=== PATIENT | female | born 2000 | race Caucasian/White ===

== ENCOUNTER 2019-02-09 23:05 | Emergency (ER) | payer SELFPAY ==
[~2019-02-09] VITALS: Ht 154.9 cm; Wt 95.2 kg
--- OUTSIDE RECORDS SUMMARY | ~2019-02-09 | XMS | Clinical Summary ---
Demographics + + + | Address | [address] | | | [place] [address] | + + + | Home Phone | | + + + | Preferred Language | Unknown | + + + | Marital Status | Single | + + + | Anabaptism Affiliation | Unknown | + + + | Race | Unknown | + + + | Ethnic Group | Unknown | + + + Author + + + | Author | [facility] | | | and [place] | + + + | Organization | [facility] | | | and [place] | + + + | Address | Unknown | + + + | Phone | Unavailable | + + + Support + + + + + | Name | Relationship | Address | Phone | + + + + + | Anel Jennings | ECON | [address] | | | | | [place] [address] | | + + + + + Care Team Providers + +------+ + | Care Scenario Writer Name | Role | Phone | + +------+ + | No Physician | PP | Unavailable | + +------+ + Allergies + + + + + + | Active Allergy | Reactions | Severity | Noted | Comments | | | | | Date | | + + + + + + | Hydrocodone | Hives | Medium | 12/05/19 | | | | | | 16 | | + + + + + + Medications + + + +---------+------+------+-------+ | Medication | Sig | Dispensed | Refills | Star | End | Statu | | | | | | t | Date | s | | | | | | Date | | | + + + +---------+------+------+-------+ | ibuprofen (ADVIL, | Take 200 mg by mouth | | 0 | | | Activ | | MOTRIN) 200 mg | every 6 hours as | | | | | e | | tablet | needed for Pain. | | | | | | + + + +---------+------+------+-------+ | acetaminophen | Take 500 mg by mouth | | 0 | | | Activ | | (TYLENOL) 500 mg | every 6 hours as | | | | | e | | tablet | needed for Pain. | | | | | | + + + +---------+------+------+-------+ | ondansetron | Take 1 tablet by | 15 | 0 | 02/2 | | Activ | | (ZOFRAN ODT) 4 mg | mouth every 6 hours | tablet | | 7/20 | | e | | disintegrating | as needed for | | | 16 | | | | tablet | Nausea. | | | | | | + + + +---------+------+------+-------+ Active Problems Not on file Social History + + + +--------+------+ | Tobacco Use | Types | Packs/Day | Years | Date | | | | | Used | | + + + +--------+------+ | Heavy Tobacco Smoker | Cigarettes | 0.5 | | | + + + +--------+------+ + + + | Sex Assigned at | Date Recorded | | | | + + + | Not on file | | + + + + + + + | Job Start Date | Occupation | Industry | + + + + | Not on file | Not on file | Not on file | + + + + + + + + | Travel History | Travel Start | Travel End | + + + + + + | No recent travel history available. | + + Last Filed Vital Signs + + + + | Vital Sign | Reading | Time Taken | + + + + | Blood Pressure | 124/74 | 12/05/20151709 PST | + + + + | Pulse | 99 | 12/05/20151709 PST | + + + + | Temperature | 37.9 C (100.3 F) | 12/05/20151709 PST | + + + + | Respiratory Rate | 16 | 12/05/20151709 PST | + + + + | Oxygen Saturation | 98% | 12/05/20151709 PST | + + + + | Inhaled Oxygen | - | - | | Concentration | | | + + + + | Weight | 81.6 kg (180 lb) | 12/05/20151709 PST | + + + + | Height | 154.9 cm (5' 1") | 12/05/20151709 PST | + + + + | Body Mass Index | 34.01 | 12/05/20151709 PST | + + + + Plan of Treatment + + + + + | Health Maintenance | Due Date | Last Done | Comments | + + + + + | Well Child Check | | | | | | 2 | | | + + + + + | Vaccine: HPV (1 - | | | | | Female 3-dose | 4 | | | | series) | | | | + + + + + | Vaccine: | | | | | Dtap/Tdap/Td (1 - | 8 | | | | Tdap) | | | | + + + + + | Vaccine: Influenza | | | | | (Season Ended) | 9 | | | + + + + + Results Not on filefrom Last 3 Months Insurance + +--------+ +--------+ +---------+--------+ | Payer | Benefi | Subscriber | Effect | Phone | Address | Type | | | t Plan | ID | agueda | | | | | | / | | Dates | | | | | | Group | | | | | | + +--------+ +--------+ +---------+--------+ | [place] | MEDICA | [id number] | 10/09/19 | [phone] | | [place] | | [place] | | 16-Pre | 2 | | id | | | PLUS | | sent | | | | + +--------+ +--------+ +---------+--------+ + +--------+ +--------+ + + | Guarantor Name | Accoun | Relation to | Date | Phone | Billing Address | | | t Type | Patient | of | | | | | | | | | | + +--------+ +--------+ + + | Linnette Fox | Person | Self | [birth year] | [address] | | | al/Sudhir | | 1999 | [phone] | [place] | | | flex | | | [address] (Home) | [address] | + +--------+ +--------+ + + Advance Directives Patient has advance care planning documents on file. For more information, please contact:[facility] [place] [address]
--- OUTSIDE RECORDS SUMMARY | ~2019-02-09 | XMS | Clinical Summary ---
Demographics + + + | Address | [address] | | | [place] [address] | + + + | Home Phone | | + + + | Preferred Language | Unknown | + + + | Marital Status | Single | + + + | Methodist Affiliation | Unknown | + + + | Race | Unknown | + + + | Ethnic Group | Unknown | + + + Author + + + | Author | [facility] | | | and [place] | + + + | Organization | [facility] | | | and [...] | | | | | [place] [address] | | + + + + + Care Team Providers + +------+ + | Care Ferryboat Pilot Name | Role | Phone | + [...] +---------+--------+ | [place] | MEDICA | [id number] | 10/09/19 | [phone] | | Medica | | | ID [...] flex | | | 7 (Home) | [address] | + +--------+ +--------+ + + Advance Directives Patient has advance care planning documents on file. For more information, please contact:[place] [address]
[~2019-02-09 23:05] MED LIST: MACROBID 100 M100 MG PO; SEPTRA DS TABL1 EACH PO; TRAMADOL HCL50 MG PO
== END 2019-02-10 00:40 | disposition home or self-care (01) ==
LOC: ED 23:05
DX: F10.129 Alcohol abuse with intoxication, unspecified (principal); F17.200 Nicotine dependence, unspecified, uncomplicated; Z88.5 Allergy status to narcotic agent; Z79.899 Other long term (current) drug therapy
CPT/HCPCS: 84703; 99284; G0480

== ENCOUNTER 2019-03-25 11:36 | Emergency (ER) | payer OTHER ==
[~2019-03-25] VITALS: Ht 157.5 cm; Wt 95.2 kg
== END 2019-03-25 13:52 | disposition home or self-care (01) ==
LOC: ED 11:36
DX: J06.9 Acute upper respiratory infection, unspecified (principal); F17.200 Nicotine dependence, unspecified, uncomplicated; Z88.5 Allergy status to narcotic agent
CPT/HCPCS: 71045; 99284-25

== ENCOUNTER 2022-03-02 19:25 | Emergency (ER) | payer BC ==
[~2022-03-02] VITALS: Ht 157.5 cm; Wt 92.0 kg
--- OUTSIDE RECORDS SUMMARY | 2022-03-02 19:32 | XMS ---
PreManage Notification: ROSLYN COLEY Security History Faculty Member Events No recent Security Events currently on file CRITERIA MET - [facility] - 2 Visits in 30 Days CARE PROVIDERS There are no care providers on record at this time. Willi has no Care Guidelines for this patient. [place] V[facility] (12 MO.) [facility] NOTE: Visits indicate total known visits. ED/C VISIT TRACKING (12 MO.) [facility]2022 19[facility] [place] [facility] COMPLAINT: - VAGINAL BLEEDING [facility]02[facility]2022 16[facility] DIAGNOSES: - poss ectopic preg INPATIENT VISIT TRACKING (12 MO.) No inpatient visits to display in this time frame [email or web address]
[2022-03-03] MEDS ORDERED: CEPHALEXIN500 MG PO (00:14)
== END 2022-03-03 00:36 | disposition home or self-care (01) ==
LOC: ED 19:25
DX: O20.9 Hemorrhage in early pregnancy, unspecified (principal); Z3A.01 Less than 8 weeks gestation of pregnancy; O99.331 Smoking (tobacco) complicating pregnancy, first trimester; F17.200 Nicotine dependence, unspecified, uncomplicated; Z88.5 Allergy status to narcotic agent
CPT/HCPCS: 36415; 76801; 76817; 80048; 81001; 84702; 84703; 85025; 86900; 86901; 99284-25; A9270

== ENCOUNTER 2022-09-24 18:45 | Emergency (ER) | payer OTHER ==
[~2022-09-24] VITALS: Ht 157.5 cm; Wt 92.0 kg
[~2022-09-24 18:45] MED LIST changes: +CEPHALEXIN500 MG PO
[2022-09-24] MEDS ORDERED: NEXPLANON68 MG SUB-Q (20:10)
[2022-09-24] MEDS ORDERED: BENADRYL ALLERG25 MG PO (20:10)
[2022-09-24] MEDS ORDERED: BENADRYL25 MG PO (21:18)
[2022-09-24] MEDS ORDERED: PREDNISONE20 MG PO (21:18)
[2022-09-24] MEDS ORDERED: AMOX TR-K CLV1 EAC1 PO (21:18)
== END 2022-09-24 21:38 | disposition home or self-care (01) ==
LOC: ED 18:45
DX: L50.9 Urticaria, unspecified (principal); L03.90 Cellulitis, unspecified; F17.200 Nicotine dependence, unspecified, uncomplicated; Z88.5 Allergy status to narcotic agent
CPT/HCPCS: 99283; J7512; Q0163

== ENCOUNTER 2024-11-20 08:55 | Emergency (ER) | payer BC ==
[~2024-11-20] VITALS: Ht 157.5 cm; Wt 73.9 kg
[~2024-11-20 08:55] MED LIST changes: +AMOX TR-K CLV1 EAC1 PO; +BENADRYL ALLERG25 MG PO; +BENADRYL25 MG PO; +NEXPLANON68 MG SUB-Q; +PREDNISONE20 MG PO
[2024-11-20 09:27] LABS: BILIRUBIN, URINE NEGATIVE (negative); BLOOD/HGB, URINE LARGE (Negative); KETONE, URINE SMALL (Negative); LEUK ESTERASE, URINE NEGATIVE (negative); NITRITE, URINE NEGATIVE (negative)
[2024-11-20 09:37] LABS: BACTERIA, URINE RARE /hpf (negative); CASTS, URINE NONE SEEN \\lpf; COLLECTION TYPE, URINE CLEAN CATCH; CRYSTALS, URINE NONE SEEN (0-1+); EPITHELIAL CELLS, URINE SQUAMOUS 3+ /lpf (0-1+); RED BLOOD CELLS, URINE >50 /hpf (0-5); REFLEX CULTURE, URINE No (No); WHITE BLOOD CELLS, URINE 0-1 /HPF (0-5)
[2024-11-20 09:41] LABS: BASOPHILS 0.5 % (0-2); EOSINOPHILS 0.5 % (0-6); HEMATOCRIT 39.7 % (35.0-50.0); HEMOGLOBIN 13.4 g/dL (12.0-18.0); LYMPHOCYTES 22.4 % (24-44); MCH 29.7 (27-36); MCHC 33.7 g/dl (30-36); MCV 88.2 fl (81-99); MONOCYTES 7.1 % (0-12); NEUTROPHILS 69.5 % (39-80); PLATELET COUNT 260 K/uL (140-440); RDW 14.1 (10.5-15.0)
[2024-11-20 09:49] LABS: PARTIAL THROMBOPLASTIN TIME 29.5 Sec (22.9-41.3)
[2024-11-20 09:50] LABS: INR 1.03 (0.80-1.30); PROTIME 13.4 Sec (11.2-14.2)
[2024-11-20 09:54] LABS: ALBUMIN 3.8 g/dL (3.4-5.0); ALBUMIN/GLOBULIN RATIO 1.31 (1.1-2.4); ANION GAP 13.8 (7-21); BILIRUBIN, TOTAL 0.5 ng/dL (0.2-1.0); CREATININE, SERUM 0.5 mg/dL (0.55-1.02); POTASSIUM 3.8 mmol/L (3.5-5.1); PROTEIN, TOTAL 6.7 g/dL (6.4-8.2)
[2024-11-20] MEDS ORDERED: ondansetron HCL 4 MG/2 ML VIAL IV ONE (10:30)
[2024-11-20 11:36] VITALS: BP 96/52
== END 2024-11-20 11:37 | disposition home or self-care (01) ==
LOC: ED 08:55
PROVIDERS: Internal Medicine
DX: N93.8 Other specified abnormal uterine and vaginal bleeding (principal); F17.200 Nicotine dependence, unspecified, uncomplicated; Z88.5 Allergy status to narcotic agent; Z79.899 Other long term (current) drug therapy
CPT/HCPCS: 36415; 80053; 81001; 84703; 85025; 85610; 85730; 99284